=== PATIENT | female | born 1980 | race Two or more races ===

== ENCOUNTER 2022-06-23 10:46 | Inpatient (IN) | payer OTHER ==
[~2022-06-23] VITALS: Ht 160 cm; Wt 86.2 kg
[2022-06-23] MEDS ORDERED: COZAAR25 MG PO (11:13)
[2022-06-23] MEDS ORDERED: AFRIN15 M1 NASAL (11:13)
[2022-06-23] MEDS ORDERED: SYNTHROID75 MCG PO (11:13)
[2022-07-20] MEDS ORDERED: SIMETHICONE125 M1 PO (06:32)
[2022-07-20] MEDS ORDERED: POLY119PG PO (06:32)
[2022-07-20] MEDS ORDERED: IBUPROFEN800 MG PO (06:32)
[2022-07-20] MEDS ORDERED: NEURONTIN600 MG PO (06:32)
== END 2022-07-20 10:12 | disposition home or self-care (01) | DRG 743 ==
LOC: OB/GYN 06-26 09:00 → O/R 07-17 05:46 → OB/GYN 07-17 09:00
PROVIDERS: ADMIT Obstetrics & Gynecology; ATTEND Obstetrics & Gynecology
PROC: 0UT70ZZ Resection of Bilateral Fallopian Tubes, Open Approach (ICD-10-PCS; 2022-07-17)
PROC: 0UT10ZZ Resection of Left Ovary, Open Approach (ICD-10-PCS; 2022-07-17)
PROC: 0UT90ZZ Resection of Uterus, Open Approach (ICD-10-PCS; principal; 2022-07-17 07:00)
DX: D25.1 Intramural leiomyoma of uterus (principal); Z20.822 Contact with and (suspected) exposure to COVID-19; N84.1 Polyp of cervix uteri